=== PATIENT | female | born 1980 | race American Indian/Alaskan Native ===

== ENCOUNTER 2022-04-17 09:16 | Inpatient (IN) | payer OTHER ==
[2022-04-10 10:47] LABS: Basophils % (Auto) 0.4 % (0.0-1.8); Eosinophils # (Auto) 0.2 K/mm3 (0.0-0.4); Eosinophils % (Auto) 2.9 % (0.0-4.3); Hematocrit 43.7 % (30.3-42.9); Hemoglobin 14.3 gm/dl (10.1-14.3); Lymphocytes # (Auto) 1.8 K/mm3 (1.2-5.4); Mean Corpuscular HGB Conc 33 % (30-34); Mean Corpuscular Volume 96 fl (79-97); Monocytes # (Auto) 0.3 K/mm3 (0.0-0.8); Platelet Count 290 K/mm3 (140-440); Red Blood Count 4.57 M/mm3 (3.65-5.03); Red Cell Distribution Width 13.2 % (13.2-15.2)
[2022-04-10 11:08] LABS: BUN/Creatinine Ratio 8; Blood Urea Nitrogen 6 mg/dL (7-17); Calcium 8.9 mg/dL (8.4-10.2); Hemolysis Index 1
--- NOTE | 2022-04-10 15:15 | Anesthesia Consultation ---
Anesthesia Consult and Med Hx Date of service: 04/17/22 - Airway Anesthetic Teeth Evaluation: Good ROM Head & Neck: Adequate Mental/Hyoid Distance: Adequate Mallampati Class: Class III Intubation Access Assessment: Probably Good - Pre-Operative Health Status ASA Pre-Surgery Classification: ASA2 Proposed Anesthetic Plan: General Nerve Block: TAP - Pulmonary Hx Smoking: No Hx Sleep Apnea: No - Cardiovascular System Hx Hypertension: Yes (IN PAST BEFORE WEIGHT LOSS) - Central Nervous System Hx Neuromuscular Disorder: Yes (RLS) Hx Back Pain: Yes (AND NECK IN PAST ) Hx Psychiatric Problems: Yes (Anxiety/OCD) - Gastrointestinal Hx Ulcer: Yes Hx Gastroesophageal Reflux Disease: No - Hematic Hx Anemia: Yes Hx Sickle Cell Disease: No - Other Systems Hx Alcohol Use: Yes (WINE-OCC.) Hx Substance Use: No Hx Cancer: No Hx Obesity: No
[~2022-04-17 09:16] MED LIST: ACETAMINOPHEN 500 MG TAB PO ONE; LACTATED RINGERS 1,000 ML IV SCH; MAGNESIUM OXIDE 400 MG TAB PO ONE; MIDAZOLAM 2 MG/2 ML INJ IV NR; SCOPOLAMINE TRANSDERMAL PATCH 72 HR TD NR; fentaNYL 100 MCG/2 ML INJ IV ONE
[2022-04-17] MEDS ORDERED: CELECOXIB 200 MG CAP ONE (10:36)
[2022-04-17] MEDS ORDERED: ACETAMINOPHEN 500 MG TAB ONE (10:36)
[2022-04-17] MEDS ORDERED: GABAPENTIN 300 MG CAP ONE (10:37)
[2022-04-17] MEDS ORDERED: BUPIVACAINE-EPINEPHRINE/PF 0.25%-1:200,000 (30 ML) VIAL INFILTRATI ONE (11:32)
[2022-04-17] MEDS ORDERED: cloNIDine/PF 1,000 MCG/10 ML VIAL EP ONE (11:32)
[2022-04-17] MEDS ORDERED: dexAMETHasone 4 MG/ML VIAL ONE (11:32)
--- NOTE | 2022-04-17 11:37 | Anesthesia Day of Surgery ---
Anesthesia Day of Surgery - Day of Surgery Patient Examined: Yes Patient H&P Reviewed: Yes Patient is NPO: Yes
[2022-04-17] MEDS ORDERED: propofoL 200 MG/20 ML VIAL IV ONE (11:50)
[2022-04-17] MEDS ORDERED: HYDROmorphone 1 MG/1 ML INJ ONE (11:50)
[2022-04-17] MEDS ORDERED: fentaNYL 100 MCG/2 ML INJ IV PRN (12:00)
[2022-04-17] MEDS ORDERED: HYDROmorphone 0.5 MG/0.5 ML INJ IV PRN ×3 (12:00→21:14)
[2022-04-17] MEDS ORDERED: ONDANSETRON 4 MG/2 ML INJ IV PRN ×2 (12:00→19:44)
[2022-04-17] MEDS ORDERED: MIDAZOLAM 2 MG/2 ML INJ IV SCH (13:00)
[2022-04-17] MEDS ORDERED: GENTAMICIN/NS 100 MG/100 ML 100 MG/100 ML BAG IV ONE ×2 (14:04→21:14)
[2022-04-17] MEDS ORDERED: ANTICOAGULANT SOD CITRATE SOLUTION MC ONE ×2 (14:38→16:39)
[2022-04-17] MEDS ORDERED: dexAMETHasone 20 MG/5 ML VIAL ONE (15:24)
[2022-04-17] MEDS ORDERED: LACTATED RINGERS 1,000 ML ONE ×2 (15:24→16:57)
[2022-04-17] MEDS ORDERED: LIDOCAINE MPF (2%) 20 MG/1 ML VIAL 5 ML ONE (15:24)
[2022-04-17] MEDS ORDERED: KETOROLAC 30 MG/1 ML INJ ONE (15:25)
[2022-04-17] MEDS ORDERED: ROCURONIUM 50 MG/5 ML INJ IV ONE ×2 (15:25→15:30)
[2022-04-17] MEDS ORDERED: ONDANSETRON 4 MG/2 ML INJ ONE (15:25)
[2022-04-17] MEDS ORDERED: SODIUM CHLORIDE 0.9% IRR 1,500 ML BOTTLE IR ONE ×2 (15:33)
[2022-04-17] MEDS ORDERED: WATER FOR IRRIG STERILE 250 ML BOTTLE IR ONE (17:40)
[2022-04-17] MEDS ORDERED: fentaNYL 100 MCG/2 ML INJ ONE (18:39)
[2022-04-17] MEDS ORDERED: SUGAMMADEX SODIUM 200 MG/2 ML VIAL IV ONE (18:45)
--- NOTE | 2022-04-17 20:16 | Procedure Note ---
Date of procedure: 04/17/22 Pre-op diagnosis: Severe pelvic pain and menorrhagia with multiple uterine fibroids Post-op diagnosis: same (and Extensive endometriosis with scaring to posterior culdesac and serosal opening to sigmoid/rectal area) Procedure: Preop Dx: Severe pelvic pain and menorrhagia, fibroids, previous history of abdominoplasty and Roen-Y procedure and section and bilateral tubal ligation Postop Dx: same and endometriosis and extensive adhesions to left side of pelvis with distorted uterine anatomy Surgeon: Angelica Lawler MD Asst: Dr. Jackson PROCEDURE: Total abdominal hysterectomy, bilateral salpingectomy, and consult to general surgeon to evaluated serosal tear to sigmoid/rectal area without spillage of any bowel contents After the risks, benefits and alternatives were discussed, pt signed consents and was taken to the OR. Pt was given general anesthesia and placed supine and prepped and draped in usual sterile fashion including vag prep and gupta catheter placement with clear urine. Time out was done and pt given gent and clinda preop antibiotics, with allergy to PCN Incision made at the lower edge of pt's previous abdominoplasty and taken sharply to the fascia below. The fascia was incised sharply and extended using electrocautery. The rectus muscle was in the midline and a single blue suture noted extending vertically. Same most likely was related to pt's previous abdominoplasty however for entry into the abdomen, this suture was cut by me. The peritoneal cavity was entered sharply and uterus examined and noted to be larger that previously presumed and adherent posteriorly more on the left side. Pt was then placed trendelenburg and the bowels packed away with moist laparotomy sponges and a sponge over each rectus muscle where the handles of the retractor should lie then the O'Loco-O'Francis placed without difficulty. Attention turned to right side and round ligament transected and suture ligated, and sharp dissection done and also using electrocautery to separate bladder peritoneum from anterior protruding fibroids. The right utero-ovarian ligament was then clamped near the cornua using the ligasure device. Attention then turn to the left round ligament and same transected and suture ligated. At this time my real estate legal assistant Dr. Jackson entered the case. The left uteroovarian ligament was doubly clamped and then transected and doubly suture ligated using 0-vicryl suture. Both uterine vessels were skeletonized and the clamped, transected and doubly suture ligated. Serial clamps done along the ligaments on both sides of the cervix, transected and suture ligating using 0-vicryl suture. Prominent uterosacral ligaments noted posteriorly. For better visibility the uterus was amputated with the mid portion of the cervix. The cervix was amputated after noting a small hole posteriorly in the vag just below the cervix, this was extended circumferentially and the remaining cervix amputated then the vaginal angles bilaterally anchored to the ipsilateral uterosacral. Of note endometriotic type tissue seen and a less than 1 cm serosal separation/tear noted to sigmoid/rectal area most likely where the uterus was posteriorly adherent. General surgery consult done and please see his dictated note for repair and evaluation of the bowel using scope with pt frog legged and confirming no internal bruise or tear in the bowel mucosa. The remaining vag cuff was made hemostatic with running locked 0-vicryl suture around the edge and interrupted suture x 4 placed in figure of 8 across the cuff. Of note small metal like a staple removed from the posterior edge of vag wall near cervix and same sent to lab for identification. Attention then turned to the fallopian tubes which were removed using ligasure device. Excellent hemostasis remained. At the completion of Gen surg repair and evaluation of interior of colon via scope, the O'Pthuym-J-Aiihales remaining upper bowel retraction blade was removed. The bladder blade removed earlier prior to have scope of bowels by general surgeon, Dr. Rosenberg. Copious irrigation of pelvis assured all pedicles remained hemostatic and surgicel powder placed along vag vault. All sponges were removed, each already tagged prior to placement and all needles accounted for. The anterior muscle and portion of the anterior peritoneum were re-approximated with 0-vicryl in a running fashion. The fascia was then closed with 0-vicryl in a continuous fashion and then the blue suture that I had cut previously re-anchored by Dr. Rosenberg using prolene. An additional layer of scar tissue was closed using 0-vicryl suture above the rectus fascia and then the subcutaneous layer using 3-0 vicryl in a running fashion and then the skin using 4-0 monocryl in a subcutaneous fashion. Pt was extubated without difficulty and taken to recovery room stable. INTAKE: 3000cc crystalloids OUTPUT: 300cc clear urine EBL: 200cc Path: uterus with cervix, remaining cervix by itself and bilateral tubal segments and a piece of metal-like giancarlo Findings: Irregular shaped 12-14wk size uterus tilted more on the left with fibroids throughout the cavity and anterior and posteriorly and also endometriotic adhesions posteriorly with incidental finding of less than 1cm serosal tear to sigmoid/rectal tissue without spillage of stool. Previously ligated tubes and distal portions appear wnl and bilateral ovaries wnl. Anesthesia: GETA Surgeon: ANGELICA LAWLER Customer Order Clerk: KISHAN JACKSON Estimated blood loss: other (200cc) Pathology: list (uterus with part of cervix, remaining cervix, both distal tubal segments with fimbriae and metal like staple seen) Specimen disposition: to lab Condition: stable Disposition: floor
--- NOTE | 2022-04-17 20:35 | Post Anesthesia Evaluation ---
- Post Anesthesia Evaluation Patient Participated: Yes Airway Patent: Yes Stable Respiratory Function: Yes Nausea/Vomiting: No Temp > 96.8F: Yes Pain Manageable: Yes Adequeate Hydration: Yes Anesthesia Complications: No
[2022-04-17] MEDS ORDERED: IBUPROFEN 800 MG TAB PO PRN (21:14)
[2022-04-17] MEDS ORDERED: MORPHINE 4 MG/1 ML INJ IV PRN (21:14)
[2022-04-17] MEDS ORDERED: ACETAMINOPHEN 325 MG TAB PO PRN (21:14)
[2022-04-17] MEDS ORDERED: POTASSIUM CHLORIDE 20 MEQ in LACTATED RINGERS 1,000 ML IV SCH (22:00)
[2022-04-17] MEDS: metroNIDAZOLE/NS 500 MG/100 ML 500 MG/100 ML BAG IV SCH (22:45)
[2022-04-17] MEDS: METOCLOPRAMIDE 10 MG/2 ML INJ IV SCH (22:47)
[2022-04-17] MEDS: KETOROLAC 30 MG/1 ML INJ IV PRN (22:47)
[2022-04-18] MEDS: METOCLOPRAMIDE 10 MG/2 ML INJ IV SCH ×3 (03:30→22:04)
[2022-04-18 04:32] LABS: Hemoglobin 12.1 gm/dl (10.1-14.3); Mean Corpuscular HGB Conc 33 % (30-34); Mean Corpuscular Volume 94 fl (79-97); Platelet Count 226 K/mm3 (140-440); Red Blood Count 3.95 M/mm3 (3.65-5.03); Red Cell Distribution Width 13.1 % (13.2-15.2)
[2022-04-18 04:46] LABS: Blood Urea Nitrogen 8 mg/dL (7-17); Calcium 8.4 mg/dL (8.4-10.2); Hemolysis Index 10
[2022-04-18 04:49] LABS: BUN/Creatinine Ratio 13
[2022-04-18] MEDS: metroNIDAZOLE/NS 500 MG/100 ML 500 MG/100 ML BAG IV SCH (05:38)
[2022-04-18] MEDS: KETOROLAC 30 MG/1 ML INJ IV PRN (05:38)
[2022-04-18] MEDS ORDERED: SODIUM CHLORIDE 0.9% 1000 ML 1,000 ML IV ONE (07:30)
[2022-04-18 07:34] LABS: Band Neutrophils # (Manual) 0.9 K/mm3; Basophils % (Manual) 0 % (0.0-1.8); Eosinophils % (Manual) 0 % (0.0-4.3); Total Cells Counted 100
[2022-04-18 07:35] LABS: Large Platelets Few; Platelet Estimate Consistent w Auto
--- NOTE | 2022-04-18 07:58 | Event Note ---
Date: 04/18/22 CC: Post-op check (LATE ENTRY, [employer] down) HD #2, S/P ANAHI w/ bilateral salpingectomy HPI: Pain is suboptimally controlled on intermittent morphine and Toradol. No nausea or vomiting. O: VITAL= AVSS UOP= 25 ml/hr over 8 hour shift CV= no peripheral edema LUNGS= normal respiratory effort INC= dressing is clean and dry EXT= no clubbing or cyanosis LABS: Hgb= 12.1 K= 4.2 Cre= 0.6 HgbA1c= 5.2 IMP: 1.) HD #2, S/P ANAHI w/ bilateral salpingectomy PLAN: 1.) Discontinue Toradol and Motrin. 2.) Start IV fluids with normal saline. Give IV fluid bolus of normal saline. 3.) Discontinue supplemental potassium as today's potassium level is normal. 4.) Start Dilaudid PRESSURIZATION MECHANIC for improved pain control.
--- NOTE | 2022-04-18 08:43 | Post Operative Note ---
Pre-op diagnosis: Rectosigmoid colon serosal tear Post-op diagnosis: same Findings: 8mm serosal tear with extension to the muscle layer. No evidence of mucusal injury, no sign of fecal spillage. Procedure: Layered repair of rectosigmoid serosal tear. Flexible sigmoidoscopy. Anesthesia: GETAwa Surgeon: JENNIE HEADLEY Mechanic Insulator: JERMAINE GUPTA Estimated blood loss: none Pathology: none Condition: stable Disposition: PACU
--- NOTE | 2022-04-18 08:49 | Consultation ---
History of Present Illness Consult date: 04/17/22 Reason for consult: other - History of present illness History of present illness: This is a 42-year-old female patient of Dr. Angelica Lawler. Consultation is intraoperative for than assistance in evaluation and management of a r ectosigmoid serosal tear. Patient had a extensive lysis of adhesion through a Pfannenstiel type incision. Extensive intraoperative adhesions secondary to endometriosis was encountered by Dr. Lawler. At the time of my arrival hysterectomy was already completed. An 8 mm serosal tear with exposure of the muscular layer was seen. There was clearly no sign of any spillage of colonic content. Layered closure of the injury was performed using 2-0 Vicryl followed by vertical mattress sutures of 2-0 silk. Subsequent to this a flexible sigmoidoscope was brought onto the table and after a rectal exam which was normal the scope was advanced approximately 8 to 10 cm. Insufflation of the rectal stump with saline in the pelvis failed to show any extravasation of air. Palpation over the repair was visualized with the colon scope no evidence of mucosal injury visualized intraluminally. Medications and Allergies Allergies Allergy/AdvReac Type Severity Reaction Status Date / Time latex AdvReac Severe Swelling Verified 04/09/22 12:20 Penicillins AdvReac Severe Swelling Verified 04/09/22 11:35 Sulfa (Sulfonamide AdvReac Severe Swelling Verified 04/09/22 11:35 Antibiotics) TAPE-PAPER OK AdvReac Severe Swelling Uncoded 04/09/22 12:22 Home Medications Medication Instructions Recorded Confirmed Last Taken Type Ascorbic Acid/Elderberry Fruit 1 each PO Q48HR 04/09/22 04/09/22 Unknown History [Airborne Elderberry Chew Tab] Gabapentin 100 mg PO HS 04/09/22 04/09/22 Unknown History Omeprazole 40 mg PO DAILY 04/09/22 04/09/22 Unknown History Vitamin C 500 mg PO Q48HR 04/09/22 04/09/22 Unknown History Zolpidem [Ambien] 5 mg PO HS 04/09/22 04/09/22 Unknown History traMADoL [Ultram] 50 mg PO PRN PRN 04/09/22 04/09/22 Unknown History Ibuprofen [Motrin] 800 mg PO Q8HR PRN 21 Days #40 04/17/22 Unknown Rx tablet oxyCODONE /ACETAMINOPHEN [Percocet 1 tab PO Q4HR PRN 21 Days #30 tab 04/17/22 Unknown Rx 5/325] Active Meds: Active Medications Acetaminophen (Acetaminophen 325 Mg Tab) 650 mg PO Q4H PRN PRN Reason: Pain MILD(1-3)/Fever >100.5/EPPS Hydromorphone/Sodium Chloride (Hydromorphone/Ns 6 Mg/30 Ml Zoning Assistant Inj) 0.2 mg IV DIRECT MILVIA; Protocol Sodium Chloride (Nacl 0.9% 1000 Ml) 1,000 mls @ 150 mls/hr IV DIRECT MILVIA Metoclopramide HCl (Metoclopramide 10 Mg/2 Ml Inj) 10 mg IV Q6H MILVIA Stop: 04/19/22 03:15 Last Admin: 04/18/22 03:30 Dose: 10 mg Ondansetron HCl (Ondansetron 4 Mg/2 Ml Inj) 4 mg IV Q8H PRN PRN Reason: N/V unrelieved by Reglan Pantoprazole Sodium (Pantoprazole 40 Mg Inj) 40 mg IV QDAY MILVIA Exam Vital Signs Temp Pulse Resp BP Pulse Ox 98.4 F 95 H 16 129/88 98 04/10/22 09:55 04/10/22 09:55 04/10/22 09:55 04/10/22 09:55 04/10/22 09:55 Results - Labs 04/18/22 04:07 04/18/22 04:07 Abnormal lab results 04/18/22 04/18/22 Range/Units 04:07 04:07 WBC 15.2 H (4.5-11.0) K/mm3 RDW 13.1 L (13.2-15.2) % Seg Neuts % (Manual) 86.0 H (40.0-70.0) % Lymphocytes % (Manual) 1.0 L (13.4-35.0) % Seg Neutrophils # Man 13.1 H (1.8-7.7) K/mm3 Lymphocytes # (Manual) 0.2 L (1.2-5.4) K/mm3 Monocytes # (Manual) 0.9 H (0.0-0.8) K/mm3 Sodium 136 L (137-145) mmol/L Glucose 127 H (65-100) mg/dL Diabetes panel 04/17/22 04/18/22 Range/Units 04:07 04:07 Sodium 136 L (137-145) mmol/L Potassium 4.2 (3.6-5.0) mmol/L Chloride 102.0 (98-107) mmol/L Carbon Dioxide 24 (22-30) mmol/L BUN 8 (7-17) mg/dL Creatinine 0.6 (0.6-1.2) mg/dL Glucose 127 H (65-100) mg/dL Hemoglobin A1c 5.2 (4-6) % Calcium 8.4 (8.4-10.2) mg/dL Calcium panel 04/18/22 Range/Units 04:07 Calcium 8.4 (8.4-10.2) mg/dL Pituitary panel 04/18/22 Range/Units 04:07 Sodium 136 L (137-145) mmol/L Potassium 4.2 (3.6-5.0) mmol/L Chloride 102.0 (98-107) mmol/L Carbon Dioxide 24 (22-30) mmol/L BUN 8 (7-17) mg/dL Creatinine 0.6 (0.6-1.2) mg/dL Glucose 127 H (65-100) mg/dL Calcium 8.4 (8.4-10.2) mg/dL Adrenal panel 04/18/22 Range/Units 04:07 Sodium 136 L (137-145) mmol/L Potassium 4.2 (3.6-5.0) mmol/L Chloride 102.0 (98-107) mmol/L Carbon Dioxide 24 (22-30) mmol/L BUN 8 (7-17) mg/dL Creatinine 0.6 (0.6-1.2) mg/dL Glucose 127 H (65-100) mg/dL Calcium 8.4 (8.4-10.2) mg/dL Assessment and Plan Patient with open ANAHI and incidental serosal tear to the rectosigmoid. Successful repair done intraoperatively. No apparent tendon communication into the rectum through the mucosa seen on colonoscopy. We will continue to follow patient with you postoperatively.
[2022-04-18] MEDS: HYDROmorphone/NS 6 MG/30 ML PCA INJ IV SCH ×2 (09:58→20:59)
[2022-04-18] MEDS: PANTOPRAZOLE 40 MG INJ IV SCH (10:02)
--- NOTE | 2022-04-18 12:36 | Progress Note ---
Assessment and Plan Patient with open ANAHI and incidental sero muscular tear to the rectosigmoid. Successful repair done intraoperatively. No apparent communication into the rectum through the mucosa seen on colonoscopy. Sitz bath's have been ordered 3 times daily and as needed. I will continue to follow patient with you postoperatively. Subjective Date of service: 04/18/22 Patient Reports: Positive: still having pain, no bowel movement Narrative: Evie postop day #1 status post transabdominal hysterectomy and repair of incidental seromuscular injury to the rectosigmoid area. She had complained of significant amounts of pain through the night. Pain appears to be incisional primarily. There is also significant amounts of perianal pain sometimes vaginal pain. The use of a limited amount of the colon scope to about 10 to 15 cm is explained to the patient as part of the evaluation for the seromuscular injury. The patient will have sitz bath's 3 times daily and as needed for management of perianal pain which is presumed to be primarily from an anal acute fissure. Objective Vital Signs - 12hr 04/18/22 04/18/22 04/18/22 00:46 03:29 03:59 Temperature 98.3 F Pulse Rate 73 Respiratory 20 18 18 Rate Blood Pressure 148/85 Blood Pressure [Left] O2 Sat by Pulse 97 Oximetry 04/18/22 04/18/22 04/18/22 05:00 05:38 06:08 Temperature 98.0 F Pulse Rate 71 Respiratory 18 18 18 Rate Blood Pressure Blood Pressure 131/87 [Left] O2 Sat by Pulse 96 Oximetry 04/18/22 07:48 Temperature 98.1 F Pulse Rate 60 Respiratory 18 Rate Blood Pressure 141/89 Blood Pressure [Left] O2 Sat by Pulse 100 Oximetry - Labs 04/18/22 04:07 04/18/22 04:07 Diabetes panel 04/17/22 04/18/22 Range/Units 04:07 04:07 Sodium 136 L (137-145) mmol/L Potassium 4.2 (3.6-5.0) mmol/L Chloride 102.0 (98-107) mmol/L Carbon Dioxide 24 (22-30) mmol/L BUN 8 (7-17) mg/dL Creatinine 0.6 (0.6-1.2) mg/dL Glucose 127 H (65-100) mg/dL Hemoglobin A1c 5.2 (4-6) % Calcium 8.4 (8.4-10.2) mg/dL Calcium panel 04/18/22 Range/Units 04:07 Calcium 8.4 (8.4-10.2) mg/dL Pituitary panel 04/18/22 Range/Units 04:07 Sodium 136 L (137-145) mmol/L Potassium 4.2 (3.6-5.0) mmol/L Chloride 102.0 (98-107) mmol/L Carbon Dioxide 24 (22-30) mmol/L BUN 8 (7-17) mg/dL Creatinine 0.6 (0.6-1.2) mg/dL Glucose 127 H (65-100) mg/dL Calcium 8.4 (8.4-10.2) mg/dL Adrenal panel 04/18/22 Range/Units 04:07 Sodium 136 L (137-145) mmol/L Potassium 4.2 (3.6-5.0) mmol/L Chloride 102.0 (98-107) mmol/L Carbon Dioxide 24 (22-30) mmol/L BUN 8 (7-17) mg/dL Creatinine 0.6 (0.6-1.2) mg/dL Glucose 127 H (65-100) mg/dL Calcium 8.4 (8.4-10.2) mg/dL
[2022-04-18] MEDS ORDERED: SODIUM CHLORIDE 0.9% IRR 1,000 ML BOTTLE IR SCH (13:30)
--- NOTE | 2022-04-18 14:05 | Consultation ---
History of Present Illness - Reason for Consult Consult date: 04/18/22 decreased urine output, arm tingling Requesting physician: JERMAINE GUPTA - History of Present Illness 42 YO Female with HTN, KEARA, OCD, RLS, PUD consult placed by Dr. Gupta for decreased urine output and arm tingling. Patient seen and evaluated in her room. Patient resting comfort at time of exam. Patient has fever, chills, chest pain, palpitation, productive cough, skin rash, recent contact, known exposure to COVID-19. Patient moving bilateral upper and lower extremities without difficulty. Patient denies any additional complaints at time of evaluation. Past History Past Medical History: hypertension, other (See HPI) Past Surgical History: hysterectomy Social history: single. denies: smoking, alcohol abuse, prescription drug abuse Family history: hypertension Medications and Allergies Allergies Allergy/AdvReac Type Severity Reaction Status Date / Time latex AdvReac Severe Swelling Verified 04/09/22 12:20 Penicillins AdvReac Severe Swelling Verified 04/09/22 11:35 Sulfa (Sulfonamide AdvReac Severe Swelling Verified 04/09/22 11:35 Antibiotics) TAPE-PAPER OK AdvReac Severe Swelling Uncoded 04/09/22 12:22 Home Medications Medication Instructions Recorded Confirmed Last Taken Type Ascorbic Acid/Elderberry Fruit 1 each PO Q48HR 04/09/22 04/09/22 Unknown History [Airborne Elderberry Chew Tab] Gabapentin 100 mg PO HS 04/09/22 04/09/22 Unknown History Omeprazole 40 mg PO DAILY 04/09/22 04/09/22 Unknown History Vitamin C 500 mg PO Q48HR 04/09/22 04/09/22 Unknown History Zolpidem [Ambien] 5 mg PO HS 04/09/22 04/09/22 Unknown History traMADoL [Ultram] 50 mg PO PRN PRN 04/09/22 04/09/22 Unknown History Ibuprofen [Motrin] 800 mg PO Q8HR PRN 21 Days #40 04/17/22 Unknown Rx tablet oxyCODONE /ACETAMINOPHEN [Percocet 1 tab PO Q4HR PRN 21 Days #30 tab 04/17/22 Unknown Rx 5/325] Active Meds: Active Medications Acetaminophen (Acetaminophen 325 Mg Tab) 650 mg PO Q4H PRN PRN Reason: Pain MILD(1-3)/Fever >100.5/EPPS Hydromorphone/Sodium Chloride (Hydromorphone/Ns 6 Mg/30 Ml Pharmacy Stock Clerk Inj) 0.2 mg IV DIRECT MILVIA; Protocol Last Admin: 04/18/22 09:58 Dose: 0.2 mg Sodium Chloride (Nacl 0.9% 1000 Ml) 1,000 mls @ 150 mls/hr IV DIRECT MILVIA Metoclopramide HCl (Metoclopramide 10 Mg/2 Ml Inj) 10 mg IV Q6H MILVIA Stop: 04/19/22 03:15 Last Admin: 04/18/22 10:02 Dose: 10 mg Ondansetron HCl (Ondansetron 4 Mg/2 Ml Inj) 4 mg IV Q8H PRN PRN Reason: N/V unrelieved by Reglan Pantoprazole Sodium (Pantoprazole 40 Mg Inj) 40 mg IV QDAY [facility] Last Admin: 04/18/22 10:02 Dose: 40 mg Sodium Chloride (Sodium Chloride 0.9% Irr 1,000 Ml Bottle) 1,000 ml IR ONCE@1330 [facility] Stop: 04/18/22 18:00 Review of Systems Constitutional: no weight loss, no weight gain, no fever, no chills Ears, nose, mouth and throat: no ear discharge, no decreased hearing, no nose pain, no nasal discharge, no sinus pressure Breasts: no change in shape, no swelling, no mass Cardiovascular: no chest pain, no orthopnea, no rapid/irregular heart beat, no edema, no lightheadedness Respiratory: no cough, no cough with sputum, no hemoptysis, no shortness of breath Gastrointestinal: no abdominal pain, no nausea, no diarrhea, no constipation, no change in bowel habits, no hematemesis Genitourinary Female: no pelvic pain, no flank pain, no dysuria, no urinary frequency, no urgency Rectal: no pain, no incontinence, no bleeding Musculoskeletal: no neck stiffness, no neck pain, no shooting arm pain, no arm numbness/tingling, no low back pain Integumentary: no rash, no pruritis, no redness, no sores, no wounds, no jaundice Neurological: no transient paralysis, no weakness, no tingling, no seizures, no syncope, no tremors Psychiatric: anxiety, no change in appetite, no suicidal ideation, no disorientation, no hallucinations Endocrine: no cold intolerance, no heat intolerance, no polyphagia, no excessive thirst Hematologic/Lymphatic: no easy bruising, no easy bleeding Allergic/Immunologic: no allergic rhinitis, no wheezing Exam - Constitutional Vitals: Temp Pulse Resp BP Pulse Ox 98.2 F 86 18 120/79 98 04/18/22 12:49 04/18/22 12:49 04/18/22 12:49 04/18/22 12:49 04/18/22 12:49 General appearance: Present: no acute distress - EENT Eyes: Present: PERRL ENT: hearing intact, clear oral mucosa - Neck Neck: Present: supple, normal ROM - Respiratory Respiratory effort: normal Respiratory: bilateral: CTA - Cardiovascular Heart Sounds: Present: S1 & S2. Absent: rub, click - Extremities Extremities: pulses symmetrical, No edema Peripheral Pulses: within normal limits - Abdominal General gastrointestinal: Present: soft, non-distended, normal bowel sounds, other (Appropriately tender, dressing clean dry and intact. Suture line intact.) Female genitourinary: Present: normal - Integumentary Integumentary: Present: clear, warm, dry - Musculoskeletal Musculoskeletal: gait normal, strength equal bilaterally - Psychiatric Psychiatric: appropriate mood/affect, intact judgment & insight - Neurologic Neurologic: CNII-XII intact, moves all extremities Results - Labs CBC & Chem 7: 04/18/22 04:07 04/18/22 04:07 Labs: Abnormal lab results 04/18/22 04/18/22 Range/Units 04:07 04:07 WBC 15.2 H (4.5-11.0) K/mm3 RDW 13.1 L (13.2-15.2) % Seg Neuts % (Manual) 86.0 H (40.0-70.0) % Lymphocytes % (Manual) 1.0 L (13.4-35.0) % Seg Neutrophils # Man 13.1 H (1.8-7.7) K/mm3 Lymphocytes # (Manual) 0.2 L (1.2-5.4) K/mm3 Monocytes # (Manual) 0.9 H (0.0-0.8) K/mm3 Sodium 136 L (137-145) mmol/L Glucose 127 H (65-100) mg/dL Assessment and Plan - Patient Problems (1) Decreased urine output Current Visit: Yes Status: Acute Plan to address problem: Recommend IV fluid resuscitation therapy, monitor urine output every shift, urine electrolytes, encourage free water intake. I suspect the patient will resume normal urine output within the next 24 hours. Bladder scan completed. Patient has small volume of urine in the bladder at this time. Repeat BMP in a.m. to monitor serum creatinine as well as GFR. Monitor fluid balance. Monit or urine output every shift.
--- NOTE | 2022-04-18 14:33 | Progress Note ---
Assessment and Plan POD#1 ANAHI/Bilateral salpingectomy, repair of seromuscularis tear in sigmoid area with scope confirming no leak by gen surg consult, now with decreased urine output 1. Consult done to both hospitalist, Dr. Mireles with decreased urine out put and also to urologist, Dr. Avitia and gupta cath replaced and no change in amount. 2. 2nd liter bolus of saline ordered, also CT abd/pelvis with and without contrast and also CT urogram in comments in the order profile as stated by radiology team if urogram needed 3. Appreciate Dr. Rosenberg, general surgeon 4. Will continue guest service supervisor and try comfort positions, pt allowed to stand and still no urine output 5. Toradol used overnight stopped earlier and normal hgb A1c seen 6. Will advance diet only after normal CT seen, continue clears for now. 7. Elevated wbc seen and will follow the trends. Repeat both cbc and bmp in am and seen the urine lytes by hospitalist All questions encouraged and answered. Subjective Date of service: 04/18/22 Principal diagnosis: POD#1 ANAHI, Bilat salpingectomy, repair seromuscular sigmoid tear, scope wnl Interval history: Pt c/o of severe pain to incisional site and buttock area, denies flank pain, denies vag bleed, denies N/V/F/C and wants to drink fluids. c/o left arm weakne ss and numbness since last night that persists today. Pt currently on dilaudid TRUST OFFICER started earlier with little or no effect. Objective - Constitutional Vitals: Vital Signs - 12hr 04/18/22 04/18/22 04/18/22 03:29 03:59 05:00 Temperature 98.0 F Pulse Rate 71 Respiratory 18 18 18 Rate Blood Pressure Blood Pressure 131/87 [Left] O2 Sat by Pulse 96 Oximetry 04/18/22 04/18/22 04/18/22 05:38 06:08 07:48 Temperature 98.1 F Pulse Rate 60 Respiratory 18 18 18 Rate Blood Pressure 141/89 Blood Pressure [Left] O2 Sat by Pulse 100 Oximetry 04/18/22 04/18/22 10:00 12:49 Temperature 98.2 F Pulse Rate 86 Respiratory 18 Rate Blood Pressure 120/79 Blood Pressure [Left] O2 Sat by Pulse 98 98 Oximetry General appearance: Present: mild distress - Neck Neck: normal ROM - Respiratory Respiratory effort: normal - Breasts Breasts: deferred - Cardiovascular Rhythm: regular Extremities: No edema - Gastrointestinal General gastrointestinal: Present: other (Dressing C/D/I) - Genitourinary Female genitourinary: other (Peripad with dark brown stain less than a quarter size, no active bleed; ) - Integumentary Integumentary: warm, dry - Neurologic Neurologic: moves all extremities - Psychiatric Psychiatric: cooperative - Labs CBC & Chem 7: 04/18/22 04:07 04/18/22 04:07 Labs: Abnormal lab results 04/18/22 04/18/22 Range/Units 04:07 04:07 WBC 15.2 H (4.5-11.0) K/mm3 RDW 13.1 L (13.2-15.2) % Seg Neuts % (Manual) 86.0 H (40.0-70.0) % Lymphocytes % (Manual) 1.0 L (13.4-35.0) % Seg Neutrophils # Man 13.1 H (1.8-7.7) K/mm3 Lymphocytes # (Manual) 0.2 L (1.2-5.4) K/mm3 Monocytes # (Manual) 0.9 H (0.0-0.8) K/mm3 Sodium 136 L (137-145) mmol/L Glucose 127 H (65-100) mg/dL Medications & Allergies - Medications Allergies/Adverse Reactions: Allergies latex Adverse Reaction (Severe, Verified 04/09/22 12:20) Swelling ITCHING,BURNING Penicillins Adverse Reaction (Severe, Verified 04/09/22 11:35) Swelling HIVES Sulfa (Sulfonamide Antibiotics) Adverse Reaction (Severe, Verified 04/09/22 11:35) Swelling HIVES TAPE-PAPER OK Adverse Reaction (Severe, Uncoded 04/09/22 12:22) Swelling BURNING AND ITCHING Home Medications: Home Medications Medication Instructions Recorded Confirmed Last Taken Type Ascorbic Acid/Elderberry Fruit 1 each PO Q48HR 04/09/22 04/09/22 Unknown History [Airborne Elderberry Chew Tab] Gabapentin 100 mg PO HS 04/09/22 04/09/22 Unknown History Omeprazole 40 mg PO DAILY 04/09/22 04/09/22 Unknown History Vitamin C 500 mg PO Q48HR 04/09/22 04/09/22 Unknown History Zolpidem [Ambien] 5 mg PO HS 04/09/22 04/09/22 Unknown History traMADoL [Ultram] 50 mg PO PRN PRN 04/09/22 04/09/22 Unknown History Ibuprofen [Motrin] 800 mg PO Q8HR PRN 21 Days #40 04/17/22 Unknown Rx tablet oxyCODONE /ACETAMINOPHEN [Percocet 1 tab PO Q4HR PRN 21 Days #30 tab 04/17/22 Unknown Rx 5/325] Active Medications: Generic Name Dose Route Start Last Admin Trade Name Freq PRN Reason Stop Dose Admin Acetaminophen 650 mg 04/17/22 21:14 Acetaminophen 325 Mg Tab PO Q4H PRN Pain MILD(1-3)/Fever >100.5/EPPS Hydromorphone/Sodium Chloride 0.2 mg 04/18/22 08:00 04/18/22 09:58 Hydromorphone/Ns 6 Mg/30 Ml New Media Strategist Inj IV 0.2 mg DIRECT MILVIA Administration Protocol Sodium Chloride 1,000 mls @ 150 mls/hr 04/18/22 08:00 Nacl 0.9% 1000 Ml IV DIRECT MILVIA Metoclopramide HCl 10 mg 04/17/22 21:14 04/18/22 10:02 Metoclopramide 10 Mg/2 Ml Inj IV 04/19/22 03:15 10 mg Q6H MILVIA Administration Ondansetron HCl 4 mg 04/17/22 21:14 Ondansetron 4 Mg/2 Ml Inj IV Q8H PRN N/V unrelieved by Niesha Pantoprazole Sodium 40 mg 04/18/22 10:00 04/18/22 10:02 Pantoprazole 40 Mg Inj IV 40 mg QDAY MILVIA Administration Sodium Chloride 1,000 ml 04/18/22 13:30 Sodium Chloride 0.9% Irr 1,000 Ml Bottle IR 04/18/22 18:00 ONCE@1330 MILVIA
[2022-04-18] MEDS ORDERED: diphenhydrAMINE 50 MG/ML VIAL IV NR (14:57)
--- NOTE | 2022-04-18 15:33 | Post Anesthesia Evaluation ---
- Post Anesthesia Evaluation Patient Participated: Yes Airway Patent: Yes Stable Respiratory Function: Yes Nausea/Vomiting: No Temp > 96.8F: Yes Pain Manageable: Yes (with Morphine SURVEY RESEARCHER pump) Adequeate Hydration: Yes Anesthesia Complications: Yes Block Receding Appropriately: Yes Patient on Ventilator: No Other Comments: patient complains to numbness of her inner right thigh, and nembness on the medial side of left forearm with weakness of the hand lay out maker and apper arm muscles
--- NOTE | 2022-04-18 16:39 | Cat Scan Report ---
CT ABDOMEN AND PELVIS WITHOUT AND WITH IV CONTRAST INDICATION: oliguria significant post op ANAHI. COMPARISON: None available. TECHNIQUE: All CT scans at this location are performed using CT dose reduction for ALARA by means of automated e xposure control. Axial CT images were obtained through the abdomen and pelvis before and after IV contrast. FINDINGS: Lung Bases: No acute abnormality. Skeletal System: No acute abnormality. ABDOMEN: Liver: No significant abnormality. Gallbladder: Removed. Bile Ducts: Very mild biliary dilatation is likely due to prior cholecystectomy. Adrenals: No significant abnormality. Right Kidney and Proximal Ureter: No significant abnormality. Left Kidney and Proximal Ureter: No significant abnormality. Pancreas: No significant abnormality. Spleen: No significant abnormality. Stomach and Bowel: Gastric bypass changes are noted. Lymph Nodes: No significant adenopathy. Aorta: No significant abnormality. IVC: No significant abnormality. Additional Findings: None. PELVIS: Urinary Bladder and Distal Ureters: The bladder is largely decompressed around a Page catheter. Dist al ureters appear unremarkable. No extravasated contrast is seen within the intraperitoneal or extrap eritoneal pelvis on the delayed phase imaging. Appendix: Not visualized. Colon: There is mild stranding within the posterior pelvis adjacent to the sigmoid colon. Free Fluid: There is trace ascites. There is also a trace amount of free air within the hysterectomy bed. Lymph Nodes: No significant adenopathy. Additional Findings: There is mild gas and fluid in the inferior rectus musculature/preperitoneal spa ce likely related to recent surgery. IMPRESSION: 1. No CT evidence of ureteral or bladder injury. 2. Postsurgical changes in the pelvis as above. No bowel obstruction or circumscribed fluid collectio n is seen within the postoperative pelvis. Signer Name: Art Mcgregor MD Signed: 04/18/2022 4:35 PM Workstation Name: [id number]
--- NOTE | 2022-04-18 17:52 | Ultrasound Report ---
ULTRASOUND RENAL INDICATION: decreased urine output post op hysterectomy. COMPARISON: CT done earlier today. FINDINGS: RIGHT KIDNEY: Size: 10.7 cm. Echogenicity: Normal. Cortical thickness: Normal. Stones: None. Hydronephrosis: None. Cyst or mass: None. LEFT KIDNEY: Size: 10 cm. Echogenicity: Normal. Cortical thickness: Normal. Stones: None. Hydronephrosis: None. Cyst or mass: None. Urinary Bladder: No significant abnormality. Free Fluid: None. Additional Findings: None. IMPRESSION 1. No acute sonographic abnormality of the kidneys. Signer Name: Alberto Fortune MD Signed: 04/18/2022 5:47 PM Workstation Name: [id number]
[2022-04-18] MEDS: SODIUM CHLORIDE 0.9% 1000 ML 1,000 ML IV SCH (19:26)
--- NOTE | 2022-04-18 23:36 | Event Note ---
Date: 04/18/22 pt seen earlier and given both renal u/s report and CT abd/pelvis with urogram and prerenal failure that responded well to IV normal saline most likely cause of decreased urinary output. Appreciate hospitalist Dr. Mireles. Nurse told to remove catheter at 10pm if pt continues to have adequate urine out, now 100cc/hr. Will continue IV hydration until pt passes flatus. Dressing removed 24hrs post op and incision C/D/I with steristrips. Pt still getting intermittent ASSESSMENT SERVICES MANAGER with good relief and feeling much better. Plan of care discussed with shared decision making. All questions encouraged and answered.
[2022-04-19] MEDS ORDERED: diphenhydrAMINE 50 MG/ML VIAL IV ONE (06:20)
[2022-04-19] MEDS: MORPHINE 4 MG/1 ML INJ IV PRN ×3 (07:44→21:03)
[2022-04-19] MEDS ORDERED: SIMETHICONE 80 MG CHEW TAB PO PRN (09:00)
[2022-04-19] MEDS: oxyCODONE /ACETAMINOPHEN 5-325MG TAB PO PRN ×4 (09:22→22:25)
[2022-04-19] MEDS: PANTOPRAZOLE 40 MG INJ IV SCH (09:22)
[2022-04-19] MEDS: DOCUSATE SODIUM 100 MG CAP PO SCH ×2 (09:22→21:08)
[2022-04-19] MEDS: ONDANSETRON 4 MG/2 ML INJ IV PRN (13:10)
--- NOTE | 2022-04-19 13:24 | Progress Note ---
Assessment and Plan - Patient Problems (1) Status post ANAHI-BSO Current Visit: Yes Status: Acute Plan to address problem: Stable. Present management to continue. Subjective Date of service: 04/19/22 Principal diagnosis: POD#2 ANAHI, Bilat salpingectomy, repair seromuscular sigmoid tear, scope wnl Interval history: Patient doing well, sitting on her bed and buttering her bread for lunch. Passing flatus. Ambulating just fine. Was in no distress. Objective - Constitutional Vitals: Vital Signs - 12hr 04/19/22 04/19/22 04/19/22 04:45 06:43 08:00 Temperature 98.1 F Pulse Rate 60 Respiratory 16 18 Rate Blood Pressure 141/84 O2 Sat by Pulse 95 98 Oximetry 04/19/22 04/19/22 08:24 12:18 Temperature 97.7 F 98.0 F Pulse Rate 71 50 L Respiratory 16 16 Rate Blood Pressure 129/83 153/93 O2 Sat by Pulse 98 97 Oximetry General appearance: Present: no acute distress - EENT Eyes: PERRL - Neck Neck: supple, normal ROM - Respiratory Respiratory effort: normal Respiratory: bilateral: CTA Extremities: pulses intact, No edema, normal color, Full ROM - Gastrointestinal General gastrointestinal: Present: soft, non-tender, normal bowel sounds, other (Incision dry, intact, no indurations.) Rectal Exam: deferred - Genitourinary Female genitourinary: deferred - Integumentary Integumentary: clear, warm, dry - Musculoskeletal Musculoskeletal: 1, strength equal bilaterally - Labs CBC & Chem 7: 04/18/22 04:07 04/18/22 04:07 Labs: Abnormal lab results 04/18/22 Range/Units 14:05 Urine Creatinine 337.0 H (0.1-20.0) mg/dL Medications & Allergies - Medications Allergies/Adverse Reactions: Allergies latex Adverse Reaction (Severe, Verified 04/09/22 12:20) Swelling ITCHING,BURNING Penicillins Adverse Reaction (Severe, Verified 04/09/22 11:35) Swelling HIVES Sulfa (Sulfonamide Antibiotics) Adverse Reaction (Severe, Verified 04/09/22 11:35) Swelling HIVES TAPE-PAPER [place] Adverse Reaction (Severe, Uncoded 04/09/22 12:22) Swelling BURNING AND ITCHING Home Medications: Home Medications Medication Instructions Recorded Confirmed Last Taken Type Ascorbic Acid/Elderberry Fruit 1 each PO Q48HR 04/09/22 04/09/22 Unknown History [Airborne Elderberry Chew Tab] Gabapentin 100 mg PO HS 04/09/22 04/09/22 Unknown History Omeprazole 40 mg PO DAILY 04/09/22 04/09/22 Unknown History Vitamin C 500 mg PO Q48HR 04/09/22 04/09/22 Unknown History Zolpidem [Ambien] 5 mg PO HS 04/09/22 04/09/22 Unknown History traMADoL [Ultram] 50 mg PO PRN PRN 04/09/22 04/09/22 Unknown History Ibuprofen [Motrin] 800 mg PO Q8HR PRN 21 Days #40 04/17/22 Unknown Rx tablet oxyCODONE /ACETAMINOPHEN [Percocet 1 tab PO Q4HR PRN 21 Days #30 tab 04/17/22 Unknown Rx 5/325] Active Medications: Generic Name Dose Route Start Last Admin Trade Name Freq PRN Reason Stop Dose Admin Acetaminophen 650 mg 04/17/22 21:14 Acetaminophen 325 Mg Tab PO Q4H PRN Pain MILD(1-3)/Fever >100.5/EPPS Docusate Sodium 100 mg 04/19/22 10:00 04/19/22 09:22 Docusate Sodium 100 Mg Cap PO 100 mg BID MILVIA Administration Hydromorphone/Sodium Chloride 0.2 mg 04/18/22 08:00 04/18/22 20:59 Hydromorphone/Ns 6 Mg/30 Ml Purchasing Analyst Inj IV 0.2 mg DIRECT MILVIA Administration Protocol Sodium Chloride 1,000 mls @ 150 mls/hr 04/18/22 08:00 04/18/22 19:26 Nacl 0.9% 1000 Ml IV 150 mls/hr DIRECT MILVAI Administration Morphine Sulfate 4 mg 04/19/22 08:00 04/19/22 13:10 Morphine 4 Mg/1 Ml Inj IV 4 mg Q4H PRN Administration Pain , Severe (7-10) Ondansetron HCl 4 mg 04/17/22 21:14 04/19/22 13:10 Ondansetron 4 Mg/2 Ml Inj IV 4 mg Q8H PRN Administration N/V unrelieved by Niesha Oxycodone/Acetaminophen 2 tab 04/19/22 08:30 04/19/22 09:22 Oxycodone /Acetaminophen 5-325mg Tab PO 2 tab Q4H PRN Administration Pain, Moderate (4-6) Pantoprazole Sodium 40 mg 04/18/22 10:00 04/19/22 09:22 Pantoprazole 40 Mg Inj IV 40 mg QDAY MILVIA Administration Simethicone 80 mg 04/19/22 09:00 Simethicone 80 Mg Chew Tab PO Q6H PRN Gas pain
--- NOTE | 2022-04-19 16:01 | Progress Note ---
Assessment and Plan Patient with open ANAHI and incidental sero muscular tear to the rectosigmoid. Successful repair done intraoperatively. No apparent communication into the rectum through the mucosa seen on colonoscopy. Sitz bath's have been ordered 3 times daily and as needed. I will continue to follow patient with you postoperatively. Subjective Date of service: 04/19/22 Patient Reports: Positive: no new complaints, still having pain, flatus, no bowel movement Narrative: Patient is postop day #1 status post transabdominal hysterectomy and repair of muscular serosal tear. Low urine output is apparently now of improved with IV fluids. CT of the abdomen with contrast negative for any ureteral injuries. Patient states that she is having some nausea with the soft diet. She is able to tolerate liquids however. She is having flatus but no BMs. Her pain is better controlled. She had been on a PROGRAM MANAGEMENT INTERN pump for pain earlier today. Objective Vital Signs - 12hr 04/19/22 04/19/22 04/19/22 04:45 06:43 08:00 Temperature 98.1 F Pulse Rate 60 Respiratory 16 18 Rate Blood Pressure 141/84 O2 Sat by Pulse 95 98 Oximetry 04/19/22 04/19/22 08:24 12:18 Temperature 97.7 F 98.0 F Pulse Rate 71 50 L Respiratory 16 16 Rate Blood Pressure 129/83 153/93 O2 Sat by Pulse 98 97 Oximetry - Labs 04/18/22 04:07 04/18/22 04:07
[2022-04-19] MEDS: METOCLOPRAMIDE 10 MG/2 ML INJ IV SCH ×2 (20:49→20:53)
[2022-04-20] MEDS: MORPHINE 4 MG/1 ML INJ IV PRN (01:00)
[2022-04-20] MEDS: oxyCODONE /ACETAMINOPHEN 5-325MG TAB PO PRN ×3 (04:49→14:09)
--- NOTE | 2022-04-20 09:49 | Progress Note ---
Assessment and Plan POD#4 ANAHI/Bilat Salpingectomy/endometriosis/repair of bowel seromuscular sigmoid tear, normal scope post repair, now with swelling to right side of incision that was not present previously; Normal lCT abd/pelvis and urogram and renal u/s on post op day#1 1. Will repeat electrolytes and cbc and re-eval the right side swelling 2. Pt told to continue wearing her support brace 3. D/C Morphine and give percocet only and pt told take meds as prescribed to enhance better mobility 4. Appreciate Dr. Rosenberg from gen surgery 5. Will give oral mag citrate and place anusol cream to small hemrrhoid/fissure seen today 6. Will re-evaluate post bowel movement. Will only discharge only if pt stable. All questions encouraged and answered Subjective Date of service: 04/20/22 Principal diagnosis: POD#4 ANAHI, Bilat salpingectomy, repair seromuscular sigmoid tear, scope wnl Interval history: pt states she continues to pass gas but she feels something painful in her rectal area and also a pulling sensation to the right side of her incision. Pt states she has been trying to hold out without any pain med. Pt has not had BM and wants to have one. Denies N/V/F/C today. Pt is voiding normal as prior to surgery. pt doesn't like the food here nor the bed and would prefer to go home today. Objective - Constitutional Vitals: Vital Signs - 12hr 04/19/22 04/20/22 04/20/22 22:00 01:56 05:24 Temperature 97.6 F 98.3 F Pulse Rate 53 L 65 Respiratory 18 18 Rate Blood Pressure 141/74 116/71 Blood Pressure [Left] O2 Sat by Pulse 98 99 96 Oximetry 04/20/22 04/20/22 07:10 08:11 Temperature 98.2 F Pulse Rate 61 Respiratory 20 Rate Blood Pressure Blood Pressure 130/81 [Left] O2 Sat by Pulse 97 100 Oximetry General appearance: Present: no acute distress - Neck Neck: normal ROM - Respiratory Respiratory effort: normal - Cardiovascular Rhythm: regular Extremities: No edema - Gastrointestinal General gastrointestinal: Present: soft, non-tender, normal bowel sounds, other (slight puffiness on right lower side of incision when pt stands; no erythema; sutures intact) - Integumentary Integumentary: warm, dry - Neurologic Neurologic: moves all extremities - Psychiatric Psychiatric: cooperative - Labs CBC & Chem 7: 04/18/22 04:07 04/18/22 04:07 Medications & Allergies - Medications Allergies/Adverse Reactions: Allergies latex Adverse Reaction (Severe, Verified 04/09/22 12:20) Swelling ITCHING,BURNING Penicillins Adverse Reaction (Severe, Verified 04/09/22 11:35) Swelling HIVES Sulfa (Sulfonamide Antibiotics) Adverse Reaction (Severe, Verified 04/09/22 11:35) Swelling HIVES TAPE-PAPER [place] Adverse Reaction (Severe, Uncoded 04/09/22 12:22) Swelling BURNING AND ITCHING Home Medications: Home Medications Medication Instructions Recorded Confirmed Last Taken Type Ascorbic Acid/Elderberry Fruit 1 each PO Q48HR 04/09/22 04/09/22 Unknown History [Airborne Elderberry Chew Tab] Gabapentin 100 mg PO HS 04/09/22 04/09/22 Unknown History Omeprazole 40 mg PO DAILY 04/09/22 04/09/22 Unknown History Vitamin C 500 mg PO Q48HR 04/09/22 04/09/22 Unknown History Zolpidem [Ambien] 5 mg PO HS 04/09/22 04/09/22 Unknown History traMADoL [Ultram] 50 mg PO PRN PRN 04/09/22 04/09/22 Unknown History Ibuprofen [Motrin] 800 mg PO Q8HR PRN 21 Days #40 04/17/22 Unknown Rx tablet oxyCODONE /ACETAMINOPHEN [Percocet 1 tab PO Q4HR PRN 21 Days #30 tab 04/17/22 Unknown Rx 5/325] Active Medications: Generic Name Dose Route Start Last Admin Trade Name Joseq PRN Reason Stop Dose Admin Acetaminophen 650 mg 04/17/22 21:14 Acetaminophen 325 Mg Tab PO Q4H PRN Pain MILD(1-3)/Fever >100.5/EPPS Docusate Sodium 100 mg 04/19/22 10:00 04/19/22 21:08 Docusate Sodium 100 Mg Cap PO 100 mg BID MILVIA Administration Hydrocortisone Acetate 1 applic 04/20/22 09:45 Hydrocortisone 2.5% Rect Cream 28.35 Gm AL Q8H PRN Hemorrhoids Hydromorphone/Sodium Chloride 0.2 mg 04/18/22 08:00 04/18/22 20:59 Hydromorphone/Ns 6 Mg/30 Ml Aviation Maintenance Technician Inj IV 0.2 mg DIRECT MILVIA Administration Protocol Sodium Chloride 1,000 mls @ 150 mls/hr 04/18/22 08:00 04/19/22 20:50 Nacl 0.9% 1000 Ml IV Infused DIRECT MILVIA Infusion Magnesium Citrate 300 ml 04/20/22 09:44 Magnesium Citrate 300 Ml Oral Liqd PO 04/20/22 09:45 ONCE ONE Morphine Sulfate 4 mg 04/19/22 08:00 04/20/22 01:00 Morphine 4 Mg/1 Ml Inj IV 4 mg Q4H PRN Administration Pain , Severe (7-10) Ondansetron HCl 4 mg 04/17/22 21:14 04/19/22 13:10 Ondansetron 4 Mg/2 Ml Inj IV 4 mg Q8H PRN Administration N/V unrelieved by Regjuan carlos Oxycodone/Acetaminophen 2 tab 04/19/22 08:30 04/20/22 04:49 Oxycodone /Acetaminophen 5-325mg Tab PO 2 tab Q4H PRN Administration Pain, Moderate (4-6) Pantoprazole Sodium 40 mg 04/18/22 10:00 04/19/22 09:22 Pantoprazole 40 Mg Inj IV 40 mg QDAY MILVIA Administration Simethicone 80 mg 04/19/22 09:00 Simethicone 80 Mg Chew Tab PO Q6H PRN Gas pain
[2022-04-20] MEDS ORDERED: MAGNESIUM CITRATE 300 ML ORAL LIQD PO NR (10:00)
[2022-04-20] MEDS ORDERED: HYDROCORTISONE 2.5% RECT CREAM 28.35 GM PR PRN (10:00)
[2022-04-20] MEDS: DOCUSATE SODIUM 100 MG CAP PO SCH ×2 (10:04→21:53)
[2022-04-20] MEDS: PANTOPRAZOLE 40 MG INJ IV SCH (10:05)
[2022-04-20 10:35] LABS: Basophils % (Auto) 0.5 % (0.0-1.8); Eosinophils # (Auto) 0.1 K/mm3 (0.0-0.4); Eosinophils % (Auto) 0.9 % (0.0-4.3); Hematocrit 38.3 % (30.3-42.9); Hemoglobin 12.6 gm/dl (10.1-14.3); Lymphocytes # (Auto) 1.5 K/mm3 (1.2-5.4); Lymphocytes % (Auto) 19.7 % (13.4-35.0); Mean Corpuscular HGB Conc 33 % (30-34); Mean Corpuscular Volume 95 fl (79-97); Monocytes # (Auto) 0.4 K/mm3 (0.0-0.8); Monocytes % (Auto) 4.8 % (0.0-7.3); Platelet Count 200 K/mm3 (140-440); Red Blood Count 4.05 M/mm3 (3.65-5.03)
[2022-04-20 10:54] LABS: Blood Urea Nitrogen 3 mg/dL (7-17); Calcium 8.8 mg/dL (8.4-10.2); Hemolysis Index 28
[2022-04-20 10:57] LABS: BUN/Creatinine Ratio 5
--- NOTE | 2022-04-20 11:36 | Progress Note ---
Assessment and Plan Patient with open ANAHI and incidental sero muscular tear to the rectosigmoid. Successful repair done intraoperatively. No apparent communication into the rectum through the mucosa seen on colonoscopy. Sitz bath's have been ordered 3 times daily and as needed. Patient is having flatus no nausea but has not had a bowel movement as yet. She has been steadily decreasing her narcotics from a PATROL COMMANDER now to Percocet. She will receive mag citrate today and is taking Anusol cream for what appears to be a hemorrhoid next to a fissure. Patient doing well in general and general surgery will sign off at this time thank you for your consultation. Subjective Date of service: 04/20/22 Patient Reports: Positive: no new complaints, feels better, pain is less Narrative: Patient is having flatus no nausea but has not had a bowel movement as yet. She has been steadily decreasing her narcotics from a PATROL COMMANDER now to Percocet. She will receive mag citrate today and is taking Anusol cream for what appears to be a hemorrhoid next to a fissure. Patient doing well in general and general surgery will sign off at this time thank you for your consultation. Objective Vital Signs - 12hr 04/20/22 04/20/22 04/20/22 01:56 05:24 07:10 Temperature 97.6 F 98.3 F Pulse Rate 53 L 65 Respiratory 18 18 Rate Blood Pressure 141/74 116/71 Blood Pressure [Left] O2 Sat by Pulse 99 96 97 Oximetry 04/20/22 08:11 Temperature 98.2 F Pulse Rate 61 Respiratory 20 Rate Blood Pressure Blood Pressure 130/81 [Left] O2 Sat by Pulse 100 Oximetry - Labs 04/20/22 09:40 04/20/22 09:40 Diabetes panel 04/20/22 Range/Units 09:40 Sodium 140 (137-145) mmol/L Potassium 4.1 (3.6-5.0) mmol/L Chloride 102.9 (98-107) mmol/L Carbon Dioxide 28 (22-30) mmol/L BUN 3 L (7-17) mg/dL Creatinine 0.6 (0.6-1.2) mg/dL Glucose 74 (65-100) mg/dL Calcium 8.8 (8.4-10.2) mg/dL Calcium panel 04/20/22 Range/Units 09:40 Calcium 8.8 (8.4-10.2) mg/dL Pituitary panel 04/20/22 Range/Units 09:40 Sodium 140 (137-145) mmol/L Potassium 4.1 (3.6-5.0) mmol/L Chloride 102.9 (98-107) mmol/L Carbon Dioxide 28 (22-30) mmol/L BUN 3 L (7-17) mg/dL Creatinine 0.6 (0.6-1.2) mg/dL Glucose 74 (65-100) mg/dL Calcium 8.8 (8.4-10.2) mg/dL Adrenal panel 04/20/22 Range/Units 09:40 Sodium 140 (137-145) mmol/L Potassium 4.1 (3.6-5.0) mmol/L Chloride 102.9 (98-107) mmol/L Carbon Dioxide 28 (22-30) mmol/L BUN 3 L (7-17) mg/dL Creatinine 0.6 (0.6-1.2) mg/dL Glucose 74 (65-100) mg/dL Calcium 8.8 (8.4-10.2) mg/dL
[2022-04-20] MEDS: ONDANSETRON 4 MG/2 ML INJ IV PRN (13:19)
--- NOTE | 2022-04-20 16:09 | XRay Report ---
ABDOMEN 1 VIEW(S) INDICATION / CLINICAL INFORMATION: ileus post op, N/V; no BM, small flatus. COMPARISON: None available. FINDINGS: TUBES / LINES: None. BOWEL GAS PATTERN/EXTRALUMINAL GAS: Mild distention of small and large bowel. No pneumatosis or secon brody signs of free air. ADDITIONAL FINDINGS: No significant additional findings. IMPRESSION: 1. Mild distention of small large bowel, likely adynamic ileus. Signer Name: Alberto Fortune MD Signed: 04/20/2022 4:04 PM Workstation Name: [id number]
[2022-04-20] MEDS ORDERED: GENTAMICIN/NS 120MG/100ML 120 MG/100 ML BAG IV ONE (17:02)
[2022-04-20] MEDS: SODIUM CHLORIDE 0.9% 1000 ML 1,000 ML IV SCH (17:32)
--- NOTE | 2022-04-20 17:35 | Event Note ---
Date: 04/20/22 pt evaluated and she vomited once and not feeling well. Abd not distended nor tender. KUB done with adynamic ileus. I spoke with Dr. Rosenberg and he agrees with NPO overnight and then clears diet, Will give IV fluids antibiotics vanco, gent and clinda (PCN allergy) and narcotics morphine sparingly. May given intermittent toradol with great urine output now. Pt voided 550cc in my presence in the bathroom. Will continue to observe swelling to right side of incision with normal CBC and BMP. Plan of care discussed with pt and shared decision making done.
--- NOTE | 2022-04-20 17:38 | Event Note ---
Date: 04/20/22 I called and spoke with patient's nurse Ms. Bri Klein at [phone] and inquired about patient's condition, if she has any new symptoms Ms. Klein reports that patient is doing well, has mild ileus, being followed and managed by PART TIME RECEPTIONIST and general surgeon No urinary symptoms, and patient's initial tingling and numbness resolved. She reports that patient is medically stable at this point, there is no acute need to round on the patient However she informed me that she would call us if they need any assistance with management. I advised to continue all the current management. And to call us with questions and concerns and as needed. The nurse verbalized understanding Will sign off, call us with questions Or reconsult as if needed
[2022-04-20] MEDS: METOCLOPRAMIDE 10 MG/2 ML INJ IV PRN (19:58)
[2022-04-20] MEDS ORDERED: KETOROLAC 30 MG/1 ML INJ IM ONE ×2 (20:01→22:00)
[2022-04-20] MEDS ORDERED: KETOROLAC 30 MG/1 ML INJ IV ONE (20:46)
[2022-04-20] MEDS: VANCOMYCIN/NS 1 GM/250 ML 1 GM/250 ML BAG IV SCH (23:31)
[2022-04-21] MEDS: MORPHINE 2 MG/1 ML INJ IV PRN ×2 (00:36→09:18)
[2022-04-21] MEDS: SODIUM CHLORIDE 0.9% 1000 ML 1,000 ML IV SCH ×3 (02:39→18:12)
[2022-04-21] MEDS: METOCLOPRAMIDE 10 MG/2 ML INJ IV PRN (02:46)
[2022-04-21] MEDS: PANTOPRAZOLE 40 MG INJ IV SCH (09:16)
[2022-04-21] MEDS: ONDANSETRON 4 MG/2 ML INJ IV PRN ×2 (09:16→18:12)
--- NOTE | 2022-04-21 10:35 | Progress Note ---
Assessment and Plan Patient with open ANAHI and incidental sero muscular tear to the rectosigmoid. Successful repair done intraoperatively. No apparent communication into the rectum through the mucosa seen on colonoscopy. Sitz bath's have been ordered 3 times daily and as needed. Patient is having flatus no nausea but has not had a bowel movement as yet. She has been steadily decreasing her narcotics from a DOUGH BRAKER now to Percocet. Pt with vomitting yesterday from the mg citrate. She also notes stomach upset with the cleocin. OK to resume clear liquids now. Subjective Date of service: 04/21/22 Patient Reports: Positive: no new complaints, feels better, still having pain Objective Vital Signs - 12hr 04/21/22 04/21/22 04/21/22 00:22 05:49 08:40 Temperature 98.2 F 98.0 F 98.2 F Pulse Rate 68 73 66 Respiratory 20 20 20 Rate Blood Pressure 126/80 131/84 Blood Pressure 128/81 [Left] O2 Sat by Pulse 96 97 100 Oximetry - Labs 04/20/22 09:40 04/20/22 09:40 Diabetes panel 04/20/22 Range/Units 09:40 Sodium 140 (137-145) mmol/L Potassium 4.1 (3.6-5.0) mmol/L Chloride 102.9 (98-107) mmol/L Carbon Dioxide 28 (22-30) mmol/L BUN 3 L (7-17) mg/dL Creatinine 0.6 (0.6-1.2) mg/dL Glucose 74 (65-100) mg/dL Calcium 8.8 (8.4-10.2) mg/dL Calcium panel 04/20/22 Range/Units 09:40 Calcium 8.8 (8.4-10.2) mg/dL Pituitary panel 04/20/22 Range/Units 09:40 Sodium 140 (137-145) mmol/L Potassium 4.1 (3.6-5.0) mmol/L Chloride 102.9 (98-107) mmol/L Carbon Dioxide 28 (22-30) mmol/L BUN 3 L (7-17) mg/dL Creatinine 0.6 (0.6-1.2) mg/dL Glucose 74 (65-100) mg/dL Calcium 8.8 (8.4-10.2) mg/dL Adrenal panel 04/20/22 Range/Units 09:40 Sodium 140 (137-145) mmol/L Potassium 4.1 (3.6-5.0) mmol/L Chloride 102.9 (98-107) mmol/L Carbon Dioxide 28 (22-30) mmol/L BUN 3 L (7-17) mg/dL Creatinine 0.6 (0.6-1.2) mg/dL Glucose 74 (65-100) mg/dL Calcium 8.8 (8.4-10.2) mg/dL
[2022-04-21] MEDS: VANCOMYCIN/NS 1 GM/250 ML 1 GM/250 ML BAG IV SCH ×2 (11:45→22:32)
[2022-04-21] MEDS: DOCUSATE SODIUM 100 MG CAP PO SCH ×2 (11:46→22:32)
[2022-04-21] MEDS: oxyCODONE /ACETAMINOPHEN 5-325MG TAB PO PRN (14:50)
--- NOTE | 2022-04-21 17:02 | Progress Note ---
Assessment and Plan Post op day #4 ANAHI/Bilat salpingectomy/repair of bowel seromuscular layer with normal scope. Now with adynamic ileus resolving slowly 1. Complete IV antibiotics for the 24hrs today 2. Continue IV hydration until regular diet tolerated 3. Advance to full liquid diet later today 4. Consider discharge tomorrow afternoon if pt continues to do well 5. Appreciate gen surg, Dr. Rosenberg Subjective Date of service: 04/21/22 Principal diagnosis: POD#4 ANAHI, Bilat salpingectomy, repair seromuscular sigmoid tear, scope wnl Interval history: pt admits to having flatus and BM today and though BM small, she feels much better. Denies N/V/F/C. Pt has tolerated clears diet and ambulates much better without discomfort to her groin. Pt also states that her left arm works normal. Objective - Constitutional Vitals: Vital Signs - 12hr 04/21/22 04/21/22 04/21/22 05:49 08:40 10:00 Temperature 98.0 F 98.2 F Pulse Rate 73 66 Respiratory 20 20 18 Rate Blood Pressure 131/84 Blood Pressure 128/81 [Left] O2 Sat by Pulse 97 100 96 Oximetry 04/21/04/21/22 13:17 16:00 Temperature 97.9 F 98.3 F Pulse Rate 61 67 Respiratory 20 20 Rate Blood Pressure Blood Pressure 146/95 137/73 [Left] O2 Sat by Pulse 100 100 Oximetry General appearance: Present: no acute distress - Neck Neck: normal ROM - Respiratory Respiratory effort: normal - Breasts Breasts: deferred - Cardiovascular Rhythm: regular Extremities: No edema - Gastrointestinal General gastrointestinal: Present: soft, non-tender, normal bowel sounds, other (Incision C/D/I with steristrips) - Genitourinary Female genitourinary: other (no vag bleed) - Neurologic Neurologic: moves all extremities - Psychiatric Psychiatric: cooperative - Labs CBC & Chem 7: 04/20/22 09:40 04/20/22 09:40 Medications & Allergies - Medications Allergies/Adverse Reactions: Allergies latex Adverse Reaction (Severe, Verified 04/09/22 12:20) Swelling ITCHING,BURNING Penicillins Adverse Reaction (Severe, Verified 04/09/22 11:35) Swelling HIVES Sulfa (Sulfonamide Antibiotics) Adverse Reaction (Severe, Verified 04/09/22 11:35) Swelling HIVES TAPE-PAPER [place] Adverse Reaction (Severe, Uncoded 04/09/22 12:22) Swelling BURNING AND ITCHING Home Medications: Home Medications Medication Instructions Recorded Confirmed Last Taken Type Ascorbic Acid/Elderberry Fruit 1 each PO Q48HR 04/09/22 04/09/22 Unknown History [Airborne Elderberry Chew Tab] Gabapentin 100 mg PO HS 04/09/22 04/09/22 Unknown History Omeprazole 40 mg PO DAILY 04/09/22 04/09/22 Unknown History Vitamin C 500 mg PO Q48HR 04/09/22 04/09/22 Unknown History Zolpidem [Ambien] 5 mg PO HS 04/09/22 04/09/22 Unknown History traMADoL [Ultram] 50 mg PO PRN PRN 04/09/22 04/09/22 Unknown History Ibuprofen [Motrin] 800 mg PO Q8HR PRN 21 Days #40 04/17/22 Unknown Rx tablet oxyCODONE /ACETAMINOPHEN [Percocet 1 tab PO Q4HR PRN 21 Days #30 tab 04/17/22 Unknown Rx 5/325] Active Medications: Generic Name Dose Route Start Last Admin Trade Name Freq PRN Reason Stop Dose Admin Acetaminophen 650 mg 04/17/22 21:14 Acetaminophen 325 Mg Tab PO Q4H PRN Pain MILD(1-3)/Fever >100.5/EPPS Docusate Sodium 100 mg 04/19/22 10:00 04/21/22 11:46 Docusate Sodium 100 Mg Cap PO 100 mg BID MILVIA Administration Hydrocortisone Acetate 1 applic 04/20/22 10:00 04/20/22 12:18 Hydrocortisone 2.5% Rect Cream 28.35 Gm RI 1 applic Q8H PRN Administration Hemorrhoids Sodium Chloride 1,000 mls @ 150 mls/hr 04/18/22 08:00 04/21/22 09:27 Nacl 0.9% 1000 Ml IV 150 mls/hr DIRECT MILVIA Administration Clindamycin HCl 900 mg in 50 mls @ 100 mls/hr 04/20/22 18:00 04/21/22 09:17 Cleocin 900 Mg/50 Ml IV 04/21/22 18:29 100 mls/hr Q8H MILVIA Administration Protocol Vancomycin HCl 1 gm in 250 mls @ 166.667 mls/hr 04/20/22 18:00 04/21/22 11:45 Vancomycin/Ns 1 Gm/250 Ml IV 166.667 mls/hr Q12H MILVIA Administration Protocol Metoclopramide HCl 10 mg 04/20/22 17:00 04/21/22 02:46 Metoclopramide 10 Mg/2 Ml Inj IV 10 mg Q6H PRN Administration Nausea And Vomiting Morphine Sulfate 2 mg 04/20/22 19:44 04/21/22 09:18 Morphine 2 Mg/1 Ml Inj IV 2 mg Q3H PRN Administration Pain, Moderate (4-6) Ondansetron HCl 4 mg 04/17/22 21:14 04/21/22 09:16 Ondansetron 4 Mg/2 Ml Inj IV 4 mg Q8H PRN Administration N/V unrelieved by Niesha Oxycodone/Acetaminophen 2 tab 04/19/22 08:30 04/21/22 14:50 Oxycodone /Acetaminophen 5-325mg Tab PO 2 tab Q4H PRN Administration Pain, Moderate (4-6) Pantoprazole Sodium 40 mg 04/18/22 10:00 04/21/22 09:16 Pantoprazole 40 Mg Inj IV 40 mg QDAY MILVIA Administration Simethicone 80 mg 04/19/22 09:00 04/20/22 10:04 Simethicone 80 Mg Chew Tab PO 80 mg Q6H PRN Administration Gas pain
[2022-04-22] MEDS: oxyCODONE /ACETAMINOPHEN 5-325MG TAB PO PRN (04:45)
--- NOTE | 2022-04-22 07:03 | Progress Note ---
Assessment and Plan POD#5 ANAHI/bilateral salpingectomy/incidental repair of seromuscular rectosigmoid, intact when view with a scope; rectal area discomfort resolved with anusol hemorrhoid cream. Now with vaginal itching and pt desires diflucan med for same. Pt also states the left arm numbness and tingling has resolved and she walks like normal back and forth to the restroom 1. Diflucan ordered 2. advance to regular diet and if pt tolerates same, discharge home 3. Pt to follow up in office. Pathology still pending Plan of care discussed with pt and all questions encouraged and answered. Appreciate Dr. Rosenberg from gen surgery. Subjective Date of service: 04/22/22 Principal diagnosis: POD#5 ANAHI, Bilat salpingectomy, repair seromuscular sigmoid tear, scope wnl Interval history: pt states that she feels good and wants to go home today. pt has passed flatus and had BM x3 and same as loose without pain. Pain controlled with morphine med prn. pt to get percocet. Pt requests diflucan med for itching felt to vaginal area. Objective - Constitutional Vitals: Vital Signs - 12hr 04/21/22 04/21/22 04/22/22 20:20 20:37 00:38 Temperature 98.0 F 98.2 F Pulse Rate 69 63 Respiratory 20 20 Rate Blood Pressure 134/85 134/88 O2 Sat by Pulse 98 100 98 Oximetry 04/22/22 04:28 Temperature 97.9 F Pulse Rate 70 Respiratory 20 Rate Blood Pressure 149/94 O2 Sat by Pulse 100 Oximetry General appearance: Present: no acute distress - Neck Neck: normal ROM - Respiratory Respiratory effort: normal - Breasts Breasts: deferred Extremities: No edema - Gastrointestinal General gastrointestinal: Present: soft, non-tender, non-distended, normal bowel sounds, other (incision with steristrips C/D/I without bulge to right side as previously noted) - Genitourinary Female genitourinary: other (no vag bleed or discharge just itching) - Integumentary Integumentary: warm, dry - Labs CBC & Chem 7: 04/20/22 09:40 04/20/22 09:40 Medications & Allergies - Medications Allergies/Adverse Reactions: Allergies latex Adverse Reaction (Severe, Verified 04/09/22 12:20) Swelling ITCHING,BURNING Penicillins Adverse Reaction (Severe, Verified 04/09/22 11:35) Swelling HIVES Sulfa (Sulfonamide Antibiotics) Adverse Reaction (Severe, Verified 04/09/22 11:35) Swelling HIVES TAPE-PAPER [place] Adverse Reaction (Severe, Uncoded 04/09/22 12:22) Swelling BURNING AND ITCHING Home Medications: Home Medications Medication Instructions Recorded Confirmed Last Taken Type Ascorbic Acid/Elderberry Fruit 1 each PO Q48HR 04/09/22 04/09/22 Unknown History [Airborne Elderberry Chew Tab] Gabapentin 100 mg PO HS 04/09/22 04/09/22 Unknown History Omeprazole 40 mg PO DAILY 04/09/22 04/09/22 Unknown History Vitamin C 500 mg PO Q48HR 04/09/22 04/09/22 Unknown History Zolpidem [Ambien] 5 mg PO HS 04/09/22 04/09/22 Unknown History traMADoL [Ultram] 50 mg PO PRN PRN 04/09/22 04/09/22 Unknown History Ibuprofen [Motrin] 800 mg PO Q8HR PRN 21 Days #40 04/17/22 Unknown Rx tablet oxyCODONE /ACETAMINOPHEN [Percocet 1 tab PO Q4HR PRN 21 Days #30 tab 04/17/22 Unknown Rx 5/325] Active Medications: Generic Name Dose Route Start Last Admin Trade Name Joseq PRN Reason Stop Dose Admin Acetaminophen 650 mg 04/17/22 21:14 Acetaminophen 325 Mg Tab PO Q4H PRN Pain MILD(1-3)/Fever >100.5/EPPS Docusate Sodium 100 mg 04/19/22 10:00 04/21/22 22:32 Docusate Sodium 100 Mg Cap PO 100 mg BID MILVIA Administration Hydrocortisone Acetate 1 applic 04/20/22 10:00 04/20/22 12:18 Hydrocortisone 2.5% Rect Cream 28.35 Gm NM 1 applic Q8H PRN Administration Hemorrhoids Sodium Chloride 1,000 mls @ 150 mls/hr 04/18/22 08:00 04/21/22 18:12 Nacl 0.9% 1000 Ml IV 150 mls/hr DIRECT MILVIA Administration Vancomycin HCl 1 gm in 250 mls @ 166.667 mls/hr 04/20/22 18:00 04/21/22 22:32 Vancomycin/Ns 1 Gm/250 Ml IV 166.667 mls/hr Q12H MILVIA Administration Protocol Metoclopramide HCl 10 mg 04/20/22 17:00 04/21/22 02:46 Metoclopramide 10 Mg/2 Ml Inj IV 10 mg Q6H PRN Administration Nausea And Vomiting Morphine Sulfate 2 mg 04/20/22 19:44 04/21/22 09:18 Morphine 2 Mg/1 Ml Inj IV 2 mg Q3H PRN Administration Pain, Moderate (4-6) Ondansetron HCl 4 mg 04/17/22 21:14 04/21/22 18:12 Ondansetron 4 Mg/2 Ml Inj IV 4 mg Q8H PRN Administration N/V unrelieved by Niesha Oxycodone/Acetaminophen 2 tab 04/19/22 08:30 04/22/22 04:45 Oxycodone /Acetaminophen 5-325mg Tab PO 2 tab Q4H PRN Administration Pain, Moderate (4-6) Pantoprazole Sodium 40 mg 04/18/22 10:00 04/21/22 09:16 Pantoprazole 40 Mg Inj IV 40 mg QDAY MILVIA Administration Simethicone 80 mg 04/19/22 09:00 04/20/22 10:04 Simethicone 80 Mg Chew Tab PO 80 mg Q6H PRN Administration Gas pain
[2022-04-22] MEDS ORDERED: FLUCONAZOLE 100 MG TAB PO NR (08:00)
--- NOTE | 2022-04-22 08:24 | Progress Note ---
Assessment and Plan Patient with open ANAHI and incidental sero muscular tear to the rectosigmoid. Successful repair done intraoperatively. No apparent communication into the rectum through the mucosa seen on colonoscopy. Sitz bath's have been ordered 3 times daily and as needed. Patient with BM x3 and continues flatus. She is tolerating a regular diet. She has been steadily decreasing her narcotics from a MAILROOM CLERK now to Percocet. Pt with vomitting yesterday from the mg citrate. She also notes stomach upset with the cleocin. Okay to discharge home. Subjective Date of service: 04/22/22 Patient Reports: Positive: no new complaints, feels better, tolerating a regular diet Objective Vital Signs - 12hr 04/21/22 04/22/22 04/22/22 20:37 00:38 04:28 Temperature 98.0 F 98.2 F 97.9 F Pulse Rate 69 63 70 Respiratory 20 20 20 Rate Blood Pressure 134/85 134/88 149/94 O2 Sat by Pulse 100 98 100 Oximetry - Labs 04/20/22 09:40 04/20/22 09:40
[2022-04-22 08:43] VITALS: BP 128/80
[2022-04-22] MEDS: PANTOPRAZOLE 40 MG INJ IV SCH (10:24)
[2022-04-22] MEDS: DOCUSATE SODIUM 100 MG CAP PO SCH (10:24)
--- NOTE | 2022-04-22 14:36 | Discharge Summary ---
Providers - Providers Date of Admission: 04/17/22 09:50 Date of discharge: 04/22/22 Attending physician: JERMAINE GUPTA 04/18/22 14:04 Consult to Physician [CONS] Stat Comment: Consulting Provider: WILLIE MCKEON Physician Instructions: Reason For Exam: left hand weakness and numbness POD1; little urine 04/18/22 14:26 Consult to Physician [CONS] Urgent Comment: Consulting Provider: KIRTI TOBIAS Physician Instructions: Reason For Exam: oliguria worsening post op day 1 ANAHI Primary care physician: SEEMA LEVI MD Hospitalization Reason for admission: other (severe pelvic pain, menorrhagia, for scheduled hysterectomy) Procedure: other (Total abdominal hysterectomy done and bilateral salpingectomy with endometriosis and incidental repair of seromuscular tear to rectosigmoid colon and when view via scope, by Dr. Rosenberg, repair is intact without any leak) Hospital course: Scheduled Social Services Specialist ANAHI and bilateral salpingectomy; findings consistent with endometriosis/adenomyosis and incidental seromuscular tear repaired the general surgeon Dr. Rosenberg. Postop day 1, pt had significantly decreased urine output, that did not resolve initially with IV fluids, hence renal ultrasoun done and same normal, CT abd/pelvis with urogram and this was normal. Normal cbc and creatinine and fluids switched to normal saline, kidneys responded with normal output. Hospitalist consult also done and same confirmed prerenal failure that resolved. Urologist called however with normal Urogram, he did not see the patient. Pt also complained on POD#2 of left shoulder numbness and she was cleared by neurologist and anesthesiologist Dr. Almeida was also notified. Inadequate pain control and therefore morphine increased with better control, however adynamic ileus noted on POD#3. Pt was then made NPO and given broad spectrum IV antibiotics and fluids with good response and on POD#5, pt was discharged home passing flatus, having bowel movements, voiding without difficulty and pain controlled with percocet med. pt already has appt to be seen in the office in one week. All questions encouraged and answered. Condition at discharge: Good Disposition: 01 HOME / SELF CARE / HOMELESS Plan - Discharge Medications Prescriptions: Ibuprofen [Motrin] 800 mg PO Q8HR PRN 21 Days #40 tablet PRN Reason: Pain, Moderate (4-6) oxyCODONE /ACETAMINOPHEN [Percocet 5/325] 1 tab PO Q4HR PRN 21 Days #30 tab PRN Reason: Pain , Severe (7-10) - Provider Discharge Summary Activity: no sex for 6 weeks, no strenuous exercise Diet: routine Additional instructions: [] Smoking cessation referral if applicable(refer to patient education folder for contact #) [] Refer to [facility]'s [facility] Booklet Call your doctor immediately for: * Fever > 100.5 * Heavy vaginal bleeding ( >1 pad per hour) * Severe persistent headache * Shortness of breath * Reddened, hot, painful area to leg or breast * Drainage or odor from incision. * Keep incision clean and dry at all times and follow doctor's instructions regarding bathing/showering - Follow up plan Follow up: SEEMA LEVI MD [Primary Care Provider] - 7 Days Forms: [facility] Discharge Summary
== END 2022-04-22 11:45 | disposition home or self-care (01) | DRG 742 ==
LOC: 3A 09:50 → OB 19:56
PROVIDERS: ADMIT Obstetrics & Gynecology; ATTEND Obstetrics & Gynecology
PROC: 0UT90ZZ Resection of Uterus, Open Approach (ICD-10-PCS; principal; 2022-04-17)
PROC: 0UT70ZZ Resection of Bilateral Fallopian Tubes, Open Approach (ICD-10-PCS; 2022-04-17)
PROC: 0DQN0ZZ Repair Sigmoid Colon, Open Approach (ICD-10-PCS; 2022-04-17)
PROC: 0DJD8ZZ Inspection of Lower Intestinal Tract, Via Natural or Artificial Opening Endoscopic (ICD-10-PCS; 2022-04-18)
DX: D25.9 Leiomyoma of uterus, unspecified (principal); S36.533A Laceration of sigmoid colon, initial encounter; N92.0 Excessive and frequent menstruation with regular cycle; Z20.822 Contact with and (suspected) exposure to COVID-19; I10 Essential (primary) hypertension; F41.9 Anxiety disorder, unspecified; N80.3 Endometriosis of pelvic peritoneum; F41.1 Generalized anxiety disorder; K64.9 Unspecified hemorrhoids; K60.2 Anal fissure, unspecified; X58.XXXA Exposure to other specified factors, initial encounter; Y93.89 Activity, other specified; Y92.89 Other specified places as the place of occurrence of the external cause; Y99.8 Other external cause status; Z91.040 Latex allergy status; Z88.0 Allergy status to penicillin; Z88.2 Allergy status to sulfonamides; Z91.048 Other nonmedicinal substance allergy status; Z82.49 Family history of ischemic heart disease and other diseases of the circulatory system
CPT/HCPCS: 36415; 64450; 74018; 74178; 76770; 80048; 82570; 83036; 83935; 84300; 84702; 85007; 85025; 86850; 86900; 86901; 88300; 88302; 88305; 88307; G0378; J3490; J7502; J7517; C9113; J0735; J1100; J1170; J1200; J1580; J1885; J2250; J2270; J2405; J2704; J2765; J3010; J3370; J3480; J7030; J7120; Q9967; U0003

== ENCOUNTER 2022-05-28 10:36 | Emergency (ER) | payer OTHER ==
[2022-05-28 10:45] VITALS: BP 125/70
[2022-05-28] MEDS ORDERED: MORPHINE 4 MG/1 ML INJ IV ONE (11:45)
[2022-05-28] MEDS ORDERED: ONDANSETRON 4 MG/2 ML INJ IV ONE (11:45)
[2022-05-28 12:29] LABS: Eosinophils % (Auto) 0.6 % (0.0-4.3); Hematocrit 37.9 % (30.3-42.9); Hemoglobin 12.5 gm/dl (10.1-14.3); Lymphocytes % (Auto) 26.3 % (13.4-35.0); Mean Corpuscular HGB Conc 33 % (30-34); Mean Corpuscular Volume 92 fl (79-97); Mean Platelet Volume 8.4 fl (6-12); Monocytes % (Auto) 3.9 % (0.0-7.3); Platelet Count 200 K/mm3 (140-440); Red Cell Distribution Width 13.9 % (13.2-15.2)
[2022-05-28 12:30] LABS: Basophils % (Auto) 0.5 % (0.0-1.8); Eosinophils # (Auto) 0.1 K/mm3 (0.0-0.4); Lymphocytes # (Auto) 2.3 K/mm3 (1.2-5.4); Monocytes # (Auto) 0.3 K/mm3 (0.0-0.8)
[2022-05-28 12:36] LABS: Alanine Aminotransferase 17 units/L (7-56); Albumin 4.2 g/dL (3.9-5); BUN/Creatinine Ratio 13; Blood Urea Nitrogen 10 mg/dL (7-17); Calcium 8.8 mg/dL (8.4-10.2); Hemolysis Index 24
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
[2022-05-28] MEDS ORDERED: ONDANSETRON 4 MG/2 ML INJ ONE (14:55)
[2022-05-28] MEDS ORDERED: MORPHINE 4 MG/1 ML INJ ONE (14:55)
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
[2022-05-28] MEDS ORDERED: diphenhydrAMINE 50 MG/ML VIAL IV ONE (15:02)
[2022-05-28] MEDS ORDERED: KETOROLAC 30 MG/1 ML INJ IV ONE (15:02)
== END 2022-05-28 15:10 | disposition home or self-care (01) ==
LOC: ED 10:36
DX: S00.83XA Contusion of other part of head, initial encounter (principal); R10.84 Generalized abdominal pain; Z90.49 Acquired absence of other specified parts of digestive tract; Z90.710 Acquired absence of both cervix and uterus; Z98.890 Other specified postprocedural states; Z88.0 Allergy status to penicillin; Z88.2 Allergy status to sulfonamides; Z91.040 Latex allergy status; Z79.899 Other long term (current) drug therapy; Y04.8XXA Assault by other bodily force, initial encounter; Y93.89 Activity, other specified; Y92.89 Other specified places as the place of occurrence of the external cause; Y99.8 Other external cause status
CPT/HCPCS: 36415; 70450; 70486; 74176; 80053; 85025; 96374; 96375; 99284; J1200; J1885; J2270; J2405